=== PATIENT | female | born 1990 | race Caucasian/White ===

== ENCOUNTER 2019-12-04 12:23 | Day surgery (SDC) | payer BC ==
[2019-12-04 13:11] VITALS: BP 130/81; TEMP 98; BMI 26.2
[2019-12-04] MEDS ORDERED: hydrALAZINE 20 MG/ML VIAL SLOW IVP PRN (13:52)
--- NOTE | 2019-12-04 14:31 | PDOC.FPROB ---
FMR OB H&P: HPI - History of Present Illness Chief Complaint: Vaginal bleeding Indentification: 29yo at 30.0wks History of Present Illness: 29yo at 30.0wks presents with vaginal bleeding. Vaginal bleeding started last week and was evaluated in clinic, started using monostat at that time. This morning around 8am increased in amount and changed from a brown to a bright red color. Denies abdominal pain, dysuria, LOF. Endorses movement. Primary Care Physician: Dr Crandall FMR OB H&P: Current - Care : 2 Para: 0010 Gestational age: 30.0wks Due date: 02/12/20 Course/Complications: Denies FMR OB H&P: History - Past Medical History PMH: Unremarkable - OB History OB History: 1 spontaneous early 1T - Surgical History Sx History: [place] teeth removed - Social History Social History: Denies tobacco, alcohol and drug use - Family History Family History: Noncontributory FMR OB H&P: Medications - Current Home Medications: Medication Instructions Recorded Confirmed Type Metronidazole [metroNIDAZOLE] 500 mg PO Q12HR #14 tab 12/04/19 Rx Vit No.129/Iron/Folic 1 each PO DAILY 12/04/19 12/04/19 History [ One Daily Tablet] Allergies/Adverse Reactions: Allergies Allergy/AdvReac Type Severity Reaction Status Date / Time No Known Allergies Allergy Verified 12/04/19 13:07 FMR OB H&P: ROS - Review of Systems General: denies: fever/chills, fatigue Eyes: denies: vision changes Cardiovascular: denies: palpitation Respiratory: denies: shortness of breath Gastrointestinal: denies: abdominal pain, nausea Genitourinary (Female): reports: vaginal bleeding. denies: dysuria, hematuria, polyuria, contractions Integumentary: denies: rash, lesions FMR OB H&P: Vital Signs - Maternal Vital signs: Vital Signs - First Documented Temp Pulse Resp BP 98.0 F 92 18 130/81 12/04/19 12:44 12/04/19 12:44 12/04/19 12:44 12/04/19 12:44 - Heart Tones Baseline: 140 Variability: moderate Acceleration: present Deceleration: absent Category: category 1 FMR OB H&P: Physical Exam - Physical Exam General: NAD, awake, alert and oriented HEENT: normocephalic and atraumatic, MMM, conjunctiva clear, oropharynx clear Neck: supple, trachea midline General: no respiratory distress Abdomen: soft, gravid, non-tender Musculoskeletal: FROM in all four extremities, no misalignment/asymmetry, no atrophy Neurological: no focal deficit Skin: no rash, good tugor Lymphatic: no unusual bruising or bleeding Psychiatric: intact recent and remote memory, good judgement and insight, normal mood and affect - Pelvic Exam Vulva: normal hair distribution, appropriate jasmyn stage, no masses, no lesions Cervix: no masses, no lesions Deviation from normal: Scant dark blood coming from os Presentation: Transverse by US FMR OB H&P: A/P Disposition: 29yo at 30.0wks presents with painless vaginal bleeding - Abdomen nontender - US ordered, cervical length 2.66. Posterior placenta, no abnormalities visualized. - Sterile spec exam, scant dark blood present coming from os - VP3 ordered. Discussion: Date/Time: 12/04/19 2568 This H&P was discussed with Dr. Atkins who agrees with the above documentation and plan. Addendum - Attending - Attending Attestation Date/Time: 12/04/19 8420 I personally evaluated the patient and discussed the management with Dr. Caceres. I agree with the History, Examination, Assessment and Plan documented above with any addition or exceptions noted below.
--- NOTE | 2019-12-04 14:57 | ULT ---
LIMITED OB ULTRASOUND: HISTORY: Exam requested to assess the patient. FINDINGS: A single live intrauterine gestation is seen with measurements corresponding to an estimated gestatio nal age of 31 weeks 1 day and an JOHNNIE of 02/04/2020. The estimated weight measures 1659 g or 3 l bs 11 oz (69th percentile by Hadlock criteria). measurements are as follows: BPD: 7.93 cm (31 weeks 6 days) HC: 28.79 cm (31 weeks 5 days) AC: 27.77 cm (31 weeks 6 days) FL: 5.45 cm (28 weeks 6 days) Cervical length measures 2.66 cm. DEBBY measures 16.9 cm. heart rate measures 125 beats per minut e. The placenta is posteriorly located without evidence of placenta previa IMPRESSION: 1. Single live intrauterine of 31 weeks' and 1 day estimated gestational age and estimated date of delivery of 02/04/2020. 2. Posterior placenta without evidence of placenta previa. POS: [facility]
--- NOTE | 2019-12-04 16:34 | PDOC.EVN ---
Event Note - Event Note Event Note: VP3 with Bacterial Vaginosis. Sent in Rx for Metronidazole 500mg BID for 7 days. Discussed with patient, all questions answered. Has f/u on 12/08/19 Addendum - Attending - Attending Attestation Date/Time: 12/04/19 5356 I personally evaluated the patient and discussed the management with Dr. Caceres. I agree with the Assessment and Plan documented above.
== END 2019-12-04 16:27 | disposition home or self-care (01) ==
LOC: L&D/OP 12:23
PROVIDERS: ATTEND Student in an Organized Health Care Education/Training Program
DX: O46.93 Antepartum hemorrhage, unspecified, third trimester (principal); O23.593 Infection of other part of genital tract in pregnancy, third trimester; B96.89 Other specified bacterial agents as the cause of diseases classified elsewhere; Z3A.30 30 weeks gestation of pregnancy
CPT/HCPCS: 76815; 87480; 87510; 87660; 99283

== ENCOUNTER 2020-01-20 11:10 | Day surgery (SDC) | payer BC ==
[2020-01-20 11:43] VITALS: BMI 28.3
[2020-01-20] MEDS ORDERED: hydrALAZINE 20 MG/ML VIAL SLOW IVP PRN (12:16)
--- NOTE | 2020-01-20 12:19 | PDOC.LDHP ---
Labor and Delivery H&P Chief complaint: other (SEnt by Dr crandall from Office for BP obs) HPI: Patient of Dr Crandall Time: 1215 Here for BP obs Patient is a 29 yo at 36 weeks 5 days here with AM BP in office of 140/90s , sent for labs. UP in office was negative. Good FM, no VILLA or visual changes or abnormal abdominal pain.. No LOF, no VB Review of Systems: complete ROS completed and as per HPI Current gestational age (weeks): 36 (5 days) Dating criteria: last menstrual period Grav: 2 Para: 0 (SAB 1) Current complications: none Abnormal US findings: No Current medications: pre-eliane vitamins Previous surgical history: other (widom teeth) Allergies/Adverse Reactions: Allergies Allergy/AdvReac Type Severity Reaction Status Date / Time No Known Allergies Allergy Verified 12/04/19 13:07 - Physical Exam Abnormal vital signs: 122/92 and 141/91 General: NAD Heart: RRR Abdomen: gravid Extremeties: no edema FHT: category 1 [place] contractions every: no CTX - Assessment Gestational (nonproteinuric) HTN at late . BP OBS. ASX. - Plan Plan: observation in L&D (CMP and CBC ordered. If BPs remain mild, can follow up thursday with possible IOL at 37 weeks or so for GHTN if persists. No current evidence severe critia but labs pending. Serial BPs for now.)
[2020-01-20 12:35] LABS: Hemoglobin 11.5 g/dL (12.0-16.0); Mean Corpuscular HGB CONC 33.9 g/dL (32.0-36.0); Mean Corpuscular Hemoglobin 30.9 pg (27.0-31.0); Mean Corpuscular Volume 91.3 fL (78.0-98.0); Mean Platelet Volume 9.3 fL (7.4-10.4); Platelet Count 289 thou/uL (130-400); RBC Distribution Width 12.6 % (11.5-14.5); Red Blood Cell (RBC) Count 3.72 mill/uL (4.20-5.40); White Blood Cell (WBC) Count 14.8 thou/uL (4.8-10.8)
[2020-01-20 12:55] LABS: ALT (SGPT) 11 U/L (8-55); AST (SGOT) 12 U/L (5-34); Albumin 3.8 g/dL (3.5-5.0); Alkaline Phosphatase 138 U/L (40-110); Anion Gap 14 mmol/L (10-20); BUN (Urea Nitrogen) 13 mg/dL (7.0-18.7); Bilirubin, Total 0.3 mg/dL (0.2-1.2); Calc. Creatinine Clearance 121 mL/min (70-130); Carbon Dioxide 22 mmol/L (22-29); Chloride 104 mmol/L (98-107); Estimated GFR-MDRD 84; Globulin 3.6 g/dL (2.4-3.5); Glucose 69 mg/dL (70-105); Potassium 3.9 mmol/L (3.5-5.1); Protein, Total 7.4 g/dL (6.0-8.3); Sodium 136 mmol/L (136-145)
--- NOTE | 2020-01-20 13:14 | PDOC.EVN ---
Event Note - Event Note Event Note: CBC and CMP are normal. NST reactive. Bps are 140s/90s....ASX. Our plan is to follow up on Thursday and possibly schedule IOL if needed. D/W Dr Crandall
[2020-01-21] MEDS ORDERED: FLU VACC QS2019-20(6MOS UP)/PF 60 MCG/0.5 ML SYRINGE IM ONE (09:00)
== END 2020-01-20 13:25 | disposition home or self-care (01) ==
LOC: L&D/OP 11:10
PROVIDERS: ATTEND Student in an Organized Health Care Education/Training Program
DX: O13.3 Gestational [pregnancy-induced] hypertension without significant proteinuria, third trimester (principal); Z3A.36 36 weeks gestation of pregnancy
CPT/HCPCS: 36415; 80053; 85027; 87081

== ENCOUNTER 2020-01-23 19:15 | Inpatient (IN) | payer BC ==
[~2020-01-23 19:15] MED LIST: Bupivacaine/Epinephrine 0.25% 30 ML VIAL ONE
[2020-01-23 20:47] VITALS: BMI 28.3
[2020-01-23] MEDS ORDERED: NS / Oxytocin 40 units/1000ml 1,000 ML IV PRN (21:50)
[2020-01-23] MEDS ORDERED: Lidocaine 1% (PF) 30 ML VIAL SC PRN (21:50)
[2020-01-23] MEDS ORDERED: hydrALAZINE 20 MG/ML VIAL SLOW IVP PRN (21:50)
[2020-01-23] MEDS ORDERED: Acetaminophen 500 MG TAB PO PRN (21:50)
[2020-01-23] MEDS ORDERED: HYDROcodone/Acetaminophen 5/325 mg Tablet PO PRN (21:50)
[2020-01-23] MEDS ORDERED: Diphenoxylate HCl/Atropine Tablet PO PRN (21:50)
[2020-01-23] MEDS ORDERED: Ondansetron PF 4 MG/2 ML Vial IVP PRN (21:50)
[2020-01-23] MEDS ORDERED: Ibuprofen 800 MG TAB PO PRN (21:50)
[2020-01-23] MEDS ORDERED: Promethazine HCl 25 MG/ML VIAL IM PRN (21:50)
[2020-01-23] MEDS ORDERED: Misoprostol 200 MCG TAB PR PRN (21:50)
[2020-01-23] MEDS ORDERED: Carboprost 250 MCG/ML AMP IM PRN (21:50)
[2020-01-23] MEDS ORDERED: NS w/ Oxytocin 10 units 500 ML IV SCH (22:00)
[2020-01-23 22:13] LABS: Hemoglobin 11.6 g/dL (12.0-16.0); Mean Corpuscular HGB CONC 33.9 g/dL (32.0-36.0); Mean Corpuscular Hemoglobin 31.5 pg (27.0-31.0); Mean Corpuscular Volume 93.1 fL (78.0-98.0); Mean Platelet Volume 10.2 fL (7.4-10.4); Platelet Count 277 thou/uL (130-400); RBC Distribution Width 12.9 % (11.5-14.5); Red Blood Cell (RBC) Count 3.69 mill/uL (4.20-5.40)
[2020-01-23 22:28] LABS: ALT (SGPT) 11 U/L (8-55); AST (SGOT) 20 U/L (5-34); Albumin 3.5 g/dL (3.5-5.0); Alkaline Phosphatase 138 U/L (40-110); Anion Gap 17 mmol/L (10-20); BUN (Urea Nitrogen) 11 mg/dL (7.0-18.7); Bilirubin, Total 0.2 mg/dL (0.2-1.2); Calc. Creatinine Clearance 131 mL/min (70-130); Carbon Dioxide 19 mmol/L (22-29); Chloride 106 mmol/L (98-107); Estimated GFR-MDRD Greater than 90; Globulin 3.4 g/dL (2.4-3.5); Glucose 111 mg/dL (70-105); Potassium 4.2 mmol/L (3.5-5.1); Protein, Total 6.9 g/dL (6.0-8.3); Sodium 138 mmol/L (136-145)
[2020-01-23 22:47] LABS: HBSAg Index 0.15 S/CO (0-0.99); Hep B Surf Ag Non-Reactive S/CO (NonReactive); Syphilis Antibody Nonreactive (Nonreactive); Syphilis Antibody Index 0.04 S/CO (<1.00 Non-Reactive)
[2020-01-24] MEDS: Butorphanol Tartrate 1 MG/ML VIAL SLOW IVP PRN ×2 (05:24→08:20)
[2020-01-24] MEDS: Misoprostol 100 MCG TAB VAG SCH ×3 (06:16→14:07)
[2020-01-24] MEDS ORDERED: Fentanyl 4 mcg/Bup 0.1% Cadd 100 ML ONE (08:41)
--- NOTE | 2020-01-24 08:53 | PDOC.LDHP ---
Labor and Delivery H&P Chief complaint: scheduled induction HPI: 29yo at 37w1d by LMP here for IOL due to GHTN. No PIH sx. +painful ctx, s /p cytotec x 2 overnight Current gestational age (weeks): 37 Due date: 02/12/20 Dating criteria: last menstrual period Grav: 1 Para: 0 Current complications: gestational hypertension Abnormal US findings: No Past Medical History: denies Current medications: pre-eliane vitamins Previous surgical history: none Allergies/Adverse Reactions: Allergies Allergy/AdvReac Type Severity Reaction Status Date / Time No Known Allergies Allergy Verified 12/04/19 13:07 Social history: none - Physical Exam Vital signs reviewed and normal: yes Abnormal vital signs: mild range bps General: NAD Heart: RRR Lungs: CTAB Abdomen: gravid Extremeties: no edema FHT: category 1 [place] contractions every: 2-4min - Vaginal Exam cm dilated: 4 Effacement: 75% Station: -1 (arom clear) - OB Labs Blood type: O RH: positive Antibody Screen: negative HIV: negative RPR: negative HEPSAg: negative 1 hour GCT: negative GBS: negative Urine drug screen: negative Rubella: immune - Assessment L&D Assessment: medically indicated induction - Plan Plan: admit to L&D, cervical ripening, labor augmentation if indicated, informed consent obtained, anesthesia consult for pain management
[2020-01-24] MEDS ORDERED: diphenhydrAMINE 50 MG/ML VIAL IVP PRN (09:29)
[2020-01-24] MEDS ORDERED: Lactated Ringer's 500 ML IV PRN (09:29)
[2020-01-24] MEDS ORDERED: Naloxone HCl 0.4 mg/ml Vial IVP PRN ×2 (09:29)
[2020-01-24] MEDS ORDERED: EPHEDRINE 25 MG/5 ML SYRINGE SLOW IVP PRN (09:29)
[2020-01-24] MEDS ORDERED: Acetaminophen 325 MG TAB PO PRN (09:29)
[2020-01-24] MEDS ORDERED: Ondansetron PF 4 MG/2 ML Vial IVP PRN ×2 (09:29→15:18)
[2020-01-24] MEDS ORDERED: Promethazine HCl 25 MG/ML VIAL IM PRN ×2 (09:29→15:18)
[2020-01-24] MEDS ORDERED: Fentanyl 4 mcg/Bupivacaine 0.1% Cassette 100 ML EPIDURAL SCH (09:30)
[2020-01-24] MEDS ORDERED: Communication Order-Pharmacy FS SCH (09:30)
--- NOTE | 2020-01-24 12:56 | PDOC.OPDEL ---
OB Operative/Delivery Note Delivery Dr/Surgeon: Raz Assist: n/a Pre-Delivery Diagnosis: medically indicated induction (GHTN) Procedure/Post Delivery Dx: spontaneous vaginal delivery Weeks gestation: 37 Anesthesia: epidural - Findings A Sex: male Weight: 7 lb - 1 min: 9 - 5 min: 9 - Additional Findings/Plan Placenta delivered: spontaneous Repaired Obstetrical Laceration: 1st degree Estimated blood loss: 500 Post delivery plan: routine recovery
[2020-01-24] MEDS: Lactated Ringer's 1,000 ML IV SCH ×2 (14:06→19:55)
[2020-01-24] MEDS ORDERED: Benzocaine-Menthol 82.5 ML CAN TOP PRN (15:18)
[2020-01-24] MEDS ORDERED: Preparation H Ointment 28 GM TUBE PR PRN (15:18)
[2020-01-24] MEDS ORDERED: Lanolin Ointment 7 GM TUBE TOP PRN (15:18)
[2020-01-24] MEDS ORDERED: Bisacodyl 10 MG SUPP PR PRN (15:18)
[2020-01-24] MEDS ORDERED: diphenhydrAMINE 25 MG CAP PO PRN (15:18)
[2020-01-24] MEDS ORDERED: Adacel (T-DAP) 0.5 ML SYRINGE IM ONE (15:18)
[2020-01-24] MEDS ORDERED: NS / Oxytocin 40 units/1000ml 1,000 ML IV SCH (15:18)
[2020-01-24] MEDS ORDERED: Milk Of Magnesia 30 ML UDCUP PO PRN (15:18)
[2020-01-24] MEDS ORDERED: hydrALAZINE 20 MG/ML VIAL SLOW IVP PRN (15:18)
[2020-01-24] MEDS ORDERED: HYDROcodone/Acetaminophen 5/325 mg Tablet PO PRN ×2 (15:18)
[2020-01-24] MEDS: Ferrous Sulfate 325 MG TAB PO SCH (17:42)
[2020-01-24] MEDS: Ibuprofen 800 MG TAB PO SCH ×2 (17:42→20:05)
[2020-01-24] MEDS: Docusate Calcium (SURFAK) 240 MG CAP PO SCH (20:06)
[2020-01-25] MEDS: Ibuprofen 800 MG TAB PO SCH ×3 (05:43→21:28)
[2020-01-25 06:02] LABS: Hemoglobin 9.8 g/dL (12.0-16.0)
[2020-01-25] MEDS: Prenatal Vitamin 1 TAB PO SCH (08:19)
[2020-01-25] MEDS: Docusate Calcium (SURFAK) 240 MG CAP PO SCH ×2 (08:19→21:29)
[2020-01-25] MEDS: Ferrous Sulfate 325 MG TAB PO SCH ×2 (08:19→17:48)
--- NOTE | 2020-01-25 08:33 | PDOC.PP ---
Post Progress Note Post Day #: 1 Subjective: Pt doing well this am. She has been up and showered. Bleeding similar to menses and decreasing. PT is breast feeding. Pain well controlled. PO intake tolerated: yes Flatus: yes Ambulation: yes Vital Signs (12 hours) Temp Pulse Resp BP Pulse Ox 01/25/20 08:19 97.7 F 89 20 118/72 99 01/25/20 05:40 97.8 F 88 16 123/77 01/24/20 23:55 98.7 F 82 16 138/65 Weight Weight 165 lb - Physical Examination General: NAD Respiratory: non-labored breathing Abdominal: + bowel sounds, lochia, no distention, appropriately TTP Fundus firm & at: 1 cm below umbilicus Extremities: negative homans (B) Skin: no rash Neurological: no gross focal deficits Psychiatric: A&Ox3, normal affect Result Diagrams: 01/25/20 05:49 01/23/20 22:02 Additional Labs: Post Labs Blood Type O POSITIVE 01/24/20 00:12 Hep Bs Antigen Non-Reactive S/CO (NonReactive) 01/23/20 22:02 - Assessment/Plan PPD1 s/p due to GHTN. VSSAF BP WNL. Mild anemia on CBC Breast feeding. Will work with [employer] consultant today. Cont post care with plan to d/c home tomorrow
[2020-01-26] MEDS: Ibuprofen 800 MG TAB PO SCH ×2 (05:38→13:59)
[2020-01-26] MEDS: Prenatal Vitamin 1 TAB PO SCH (08:47)
[2020-01-26] MEDS: Ferrous Sulfate 325 MG TAB PO SCH ×2 (08:48→17:07)
[2020-01-26] MEDS: Docusate Calcium (SURFAK) 240 MG CAP PO SCH (08:48)
[2020-01-26 10:17] VITALS: BP 133/83; TEMP 98
--- NOTE | 2020-01-26 13:06 | PDOC.PP ---
Post Progress Note Post Day #: 2 PO intake tolerated: yes Flatus: yes Ambulation: yes Vital Signs (12 hours) Temp Pulse Resp BP Pulse Ox 01/26/20 08:00 98.0 F 82 14 133/83 99 01/26/20 05:40 97.6 F 77 18 134/83 Weight Weight 165 lb - Physical Examination General: NAD Respiratory: non-labored breathing Abdominal: no distention, appropriately TTP Fundus firm & at: umb-2 Skin: no rash Neurological: no gross focal deficits Psychiatric: normal affect Result Diagrams: 01/25/20 05:49 01/23/20 22:02 Additional Labs: Post Labs Blood Type O POSITIVE 01/24/20 00:12 Hep Bs Antigen Non-Reactive S/CO (NonReactive) 01/23/20 22:02 - Assessment/Plan PPD1 s/p TSVD VSSAF Doing well lochia < menses No sx PIH BP nl Rh pos RImm DC home FU 6w
--- NOTE | 2020-01-27 20:45 | PQF ---
[employer] Support Administrator [employer] Winform Viewer HENNY HERNANDEZ JANELLE [id number] CLINICAL DOCUMENTATION CLARIFICATION FORM: POST DISCHARGE Addendum to original discharge summary date: ____ Late entry note date: __ DATE: 01/27/20 ATTN:Lulu Crandall Please exercise your independent, professional judgment in responding to the clarification form. Clinical indicators are provided on the bottom of this form for your review Can you please further clarify the specificity of Anemia? Please check appropriate box(s): [X ] Acute blood loss anemia [ ] Post-op anemia related to acute blood loss [ ] Anemia unspecified [ ] Other diagnosis [ ] Unable to determine In addition, please specify: Present on Admission (POA): [ ] Yes [ X ] No [ ] Unable to determine For continuity of documentation, please document condition throughout progress notes and discharge summary. Thank You. CLINICAL INDICATORS - SIGNS / SYMPTOMS / LABS H and P pg.1- 29 yo at 37 weeks by LMP here for IOL due to GHTN OB Operative & Delivery note- 1st degree laceration OB Operative & Delivery note- Estimated blood loss 500 PN- bleeding similar to menses and decreasing PN pg.2- Mild anemia on CBC Laboratory- HCT 34.3L, 29.8L Laboratory-HGB 11.6L, 9.8L RISK FACTORS Gestational hypertension- H and P pg.1 37 weeks- H and P pg.1 1st degree laceration- OP report TREATMENTS: CBC monitoring- Laboratory IV Fluids- MAR vit/ Iron, Folic- MAR Home meds [employer] Support Administrator [employer] Winform Viewer (This form is maintained as a part of the permanent medical record) 2014 [facility]. All Rights Reserved [email or web address]
== END 2020-01-26 17:17 | disposition home or self-care (01) | DRG 806 ==
LOC: L&D 19:23 → 3SW 01-24 15:48
PROVIDERS: ADMIT Student in an Organized Health Care Education/Training Program; ATTEND Student in an Organized Health Care Education/Training Program
PROC: 10E0XZZ Delivery of Products of Conception, External Approach (ICD-10-PCS; principal; 2020-01-24)
PROC: 10907ZC Drainage of Amniotic Fluid, Therapeutic from Products of Conception, Via Natural or Artificial Opening (ICD-10-PCS; 2020-01-24)
PROC: 3E0P7VZ Introduction of Hormone into Female Reproductive, Via Natural or Artificial Opening (ICD-10-PCS; 2020-01-24)
PROC: 3E033VJ Introduction of Other Hormone into Peripheral Vein, Percutaneous Approach (ICD-10-PCS; 2020-01-24)
PROC: 0HQ9XZZ Repair Perineum Skin, External Approach (ICD-10-PCS; 2020-01-24)
DX: O13.4 Gestational [pregnancy-induced] hypertension without significant proteinuria, complicating childbirth (principal); D62 Acute posthemorrhagic anemia; Z37.0 Single live birth; O70.0 First degree perineal laceration during delivery; O90.81 Anemia of the puerperium; Z3A.37 37 weeks gestation of pregnancy
CPT/HCPCS: 36415; 51702; 80053; 85014; 85018; 85027; 86780; 86850; 86900; 86901; 87081; 87340; 90715; 99282; J0595; J2590